=== PATIENT | female | born 1950 | race Caucasian/White ===

== ENCOUNTER 2021-11-21 10:40 | Outpatient (CLI) | payer OTHER ==
[~2021-11-21 10:40] MED LIST: AVAPRO300 MG; HYDROCHLOROTHIA25 MG; NEURONTIN300 MG; NUCYNTA; SYNTHROID125 MCG
== END 2021-11-21 10:47 | disposition home or self-care (01) ==
LOC: LAB 10:40
PROVIDERS: ATTEND Orthopaedic Surgery
DX: E56.1 Deficiency of vitamin K (principal)